=== PATIENT | female | born 1950 | race Caucasian/White ===

== ENCOUNTER 2016-12-02 23:20 | Emergency (ER) | payer BC, OTHER ==
[~2016-12-02] VITALS: Ht 160 cm; Wt 81.7 kg
[~2016-12-02 23:20] MED LIST: ADVAIR 250-501 EACH IH; ATIVAN0.5 MG PO; BENICAR40 MG PO; BUMEX2 MG PO; CLARITIN10 MG PO; DUONEB 2.5-0.5 M3 ML IH; FOSAMAX5 MG PO; K-DUR10 ME1 PO; MIRTAZAPINE7.5 MG PO; MOBIC15 MG PO; PREDNISONE 10 M10 M1 PO; PREVACID 30MG C30 M1 PO; PREVACID30 M1 PO; PROZAC 10 MG CA10 M1 PO; SIMVASTATIN40 MG PO; SINGULAIR 10 MG10 M1 PO; SPIRIVA INH; SYNTHROID50 MCG PO; VENTOLIN HFA INH8 GM IH; ZYRTEC 10 MG TA10 MG PO; ZYRTEC1 MG/1 ML PO; ZYVOX600 MG PO
[2016-12-02] MEDS ORDERED: SYMBICORT160 MCG/4. INH (23:35)
[2016-12-02] MEDS ORDERED: LEVALBUTER1.25 MG/0. INH (23:35)
[2016-12-02] MEDS ORDERED: ASPIR 8181 MG PO (23:36)
[2016-12-02] MEDS ORDERED: CARDIZEM CD120 MG PO (23:37)
[2016-12-02] MEDS ORDERED: LANOXIN 0.120.125 M1 PO (23:37)
[2016-12-02] MEDS ORDERED: TOPROL XL25 MG PO (23:38)
[2016-12-02] MEDS ORDERED: BUSPIRONE HCL10 MG PO (23:38)
[2016-12-02] MEDS ORDERED: LASIX 20 MG TAB20 MG PO (23:38)
[2016-12-03 01:14] VITALS: BP 150/88
== END 2016-12-03 01:15 | disposition home or self-care (01) ==
LOC: ER 23:20
DX: S61.411A Laceration without foreign body of right hand, initial encounter (principal); J44.9 Chronic obstructive pulmonary disease, unspecified; F41.9 Anxiety disorder, unspecified; F32.9 Major depressive disorder, single episode, unspecified; M19.012 Primary osteoarthritis, left shoulder; M19.011 Primary osteoarthritis, right shoulder; Z87.01 Personal history of pneumonia (recurrent); K21.9 Gastro-esophageal reflux disease without esophagitis; E03.9 Hypothyroidism, unspecified; E78.5 Hyperlipidemia, unspecified; Z98.890 Other specified postprocedural states; Z88.0 Allergy status to penicillin; Z88.1 Allergy status to other antibiotic agents; Z88.5 Allergy status to narcotic agent; Z91.041 Radiographic dye allergy status; Z91.013 Allergy to seafood; Z88.8 Allergy status to other drugs, medicaments and biological substances; Z87.891 Personal history of nicotine dependence; W22.8XXA Striking against or struck by other objects, initial encounter; Y93.89 Activity, other specified; Y92.091 Bathroom in other non-institutional residence as the place of occurrence of the external cause; Y99.8 Other external cause status

== ENCOUNTER 2016-12-04 20:19 | Emergency (ER) | payer BC, OTHER ==
[~2016-12-04] VITALS: Ht 160 cm; Wt 81.7 kg
[~2016-12-04 20:19] MED LIST changes: +ASPIR 8181 MG PO; +BUSPIRONE HCL10 MG PO; +CARDIZEM CD120 MG PO; +LANOXIN 0.120.125 M1 PO; +LASIX 20 MG TAB20 MG PO; +LEVALBUTER1.25 MG/0. INH; +SYMBICORT160 MCG/4. INH; +TOPROL XL25 MG PO
[2016-12-04 21:12] VITALS: BP 137/80
== END 2016-12-04 21:13 | disposition home or self-care (01) ==
LOC: ER 20:19
DX: S61.411D Laceration without foreign body of right hand, subsequent encounter (principal); J44.9 Chronic obstructive pulmonary disease, unspecified; K21.9 Gastro-esophageal reflux disease without esophagitis; E03.9 Hypothyroidism, unspecified; E78.00 Pure hypercholesterolemia, unspecified; M19.90 Unspecified osteoarthritis, unspecified site; F41.9 Anxiety disorder, unspecified; Z90.710 Acquired absence of both cervix and uterus; Z98.890 Other specified postprocedural states; Z87.891 Personal history of nicotine dependence; Z88.0 Allergy status to penicillin; Z88.1 Allergy status to other antibiotic agents; Z88.5 Allergy status to narcotic agent; Z91.013 Allergy to seafood; Z91.041 Radiographic dye allergy status; Z91.048 Other nonmedicinal substance allergy status; Z88.8 Allergy status to other drugs, medicaments and biological substances; X58.XXXD Exposure to other specified factors, subsequent encounter; Y92.89 Other specified places as the place of occurrence of the external cause; Y99.8 Other external cause status

== ENCOUNTER 2018-05-13 10:24 | Emergency (ER) | payer BC, OTHER ==
[~2018-05-13] VITALS: Ht 160 cm; Wt 89.8 kg
[2018-05-13] MEDS ORDERED: OMEGA-31000 M1 PO (10:55)
[2018-05-13] MEDS ORDERED: VITAMIN B-12500 MCG PO (10:56)
[2018-05-13] MEDS ORDERED: VITAMIN D2000 UNIT PO (10:56)
[2018-05-13] MEDS ORDERED: KLOR-CON 1010 MEQ PO (10:57)
[2018-05-13] MEDS ORDERED: LANSOPRAZOLE30 MG PO (10:57)
[2018-05-13] MEDS ORDERED: LIPITOR 20 MG T20 M1 PO (10:59)
[2018-05-13] MEDS ORDERED: DITROPAN XL5 M1 PO (10:59)
[2018-05-13] MEDS ORDERED: DESVENLAFAXINE50 M2 PO (11:00)
[2018-05-13 11:31] LABS: ABSOLUTE NEUTROPHILS 7.4 thou/uL (1.4-8.2); BASOPHILS 0.3 % (0.0-2.0); EOSINOPHILS 0.7 % (0.0-3.0); HEMATOCRIT 36.3 % (37.0-47.0); HEMOGLOBIN 12.2 gm/dL (12.0-15.0); LYMPHOCYTES 12.8 % (24.0-44.0); MCH 29.4 pg (26.0-34.0); MCHC 33.5 g/dL (28.0-37.0); MCV 87.6 fL (80.0-100.0); PLATELET COUNT 154 thou/uL (150-400); POLYS 80.2 % (36.0-66.0); RBC 4.14 mil/uL (4.20-5.00); RDW 13.7 % (10.5-14.5); WBC 9.2 thou/uL (4.0-11.0)
[2018-05-13 11:32] LABS: ANION GAP 3 mmol/L (7-16); BUN 13 mg/dL (7-18); CALCIUM 10.1 mg/dL (8.5-10.1); CHLORIDE 96 mmol/L (98-107); CO2 40 mmol/L (21-32); CREATININE 0.5 mg/dL (0.6-1.0); GLUCOSE 132 mg/dL (74-106); POTASSIUM 3.9 mmol/L (3.5-5.1); SODIUM 139 mmol/L (136-145)
[2018-05-13 11:40] LABS: ALBUMIN 3.9 g/dL (3.4-5.0); DIRECT BILIRUBIN < 0.1 mg/dL (<0.1-0.3); LIPASE 81 U/L (73-393); SGOT 19 U/L (15-37); SGPT 17 U/L (30-65); TOTAL BILIRUBIN 0.6 mg/dL (<0.1-1.0); TOTAL PROTEIN 7.1 g/dL (6.4-8.2); TROPONIN-I <0.06 ng/mL (<0.06)
[2018-05-13 12:15] LABS: URINE BILIRUBIN NEGATIVE (Negative); URINE BLOOD TRACE (Negative); URINE CLARITY CLEAR; URINE COLOR YELLOW; URINE GLUCOSE-RANDOM* NEGATIVE (Negative); URINE KETONES 1+ (Negative); URINE LEUKOCYTES-REFLEX NEGATIVE (Negative); URINE NITRITE-REFLEX NEGATIVE (Negative); URINE PROTEIN (DIPSTICK) 1+ (Negative); URINE SPECIFIC GRAVITY 1.015 (1.005-1.035); URINE UROBILINOGEN 0.2 E.U./dl (0.2-1.0)
[2018-05-13 12:27] LABS: CASTS None Seen /LPF (None Seen); MUCUS 0-3 Light strn/LPF (None Seen); SQUAMOUS 0-3 Few /LPF (0-3); URINE RBC 0-2 Rare /HPF (0-2); URINE WBC-REFLEX 0-5 Rare /HPF (0-5)
[2018-05-13 12:28] LABS: AMORPHOUS PHOSPHATES Few /LPF (None Seen); BACTERIA-REFLEX 1-9 Few /HPF (None Seen)
[2018-05-13 17:44] VITALS: BP 157/76
--- NOTE | 2018-05-13 20:17 | EKG ---
[address] [place] [address] ELECTROCARDIOGRAM REPORT Name: JL RICE Room #: DEP [place]#: [id number] ������������������ Admission: 05/13/18 ������������������ Attend Phys: Discharge: 05/13/18 ������������������ Date of : 48 Report #: [id number] ����������������������������������������������������������������� [id number] THIS REPORT FOR: //name// [facility] ED Test Date: 2018-05-13 Test Time: 11:29:10 Pat Name: JL RICE Department: Room: Gender: F Roving Can Tender: : 1950 Requested By: Eliana Douglas Order Number: [id number] MD: Gene Willard Measurements Intervals [place] Rate: 82 P: 85 OR: 140 QRS: 86 QRSD: 106 T: 73 QT: 371 QTc: 434 Interpretive Statements Sinus rhythm Atrial premature complex Nonspecific S/T abnrm Compared to ECG 10/28/2009 12:10:26 Atrial premature complex(es) now present Sinus tachycardia no longer present Electronically Signed On 05-13-2018 20:17:06 DISCHARGE PLANNER by Gene Willard [email or web address] ��������������������������������������������� <ELECTRONICALLY SIGNED> ���������������������������������������� By: Gene Willard MD ��������������������������������������������� 05/13/182016 1129 28 Gene Willard MD /EPI
== END 2018-05-13 17:44 | disposition home or self-care (01) ==
LOC: ER 10:24
PROVIDERS: Emergency Medicine
DX: R11.0 Nausea (principal); R53.1 Weakness; R51 Headache; J44.9 Chronic obstructive pulmonary disease, unspecified; M19.019 Primary osteoarthritis, unspecified shoulder; M81.0 Age-related osteoporosis without current pathological fracture; K21.9 Gastro-esophageal reflux disease without esophagitis; E03.9 Hypothyroidism, unspecified; E78.5 Hyperlipidemia, unspecified; Z87.01 Personal history of pneumonia (recurrent); Z79.899 Other long term (current) drug therapy; Z88.0 Allergy status to penicillin; Z88.1 Allergy status to other antibiotic agents; Z88.5 Allergy status to narcotic agent; Z88.8 Allergy status to other drugs, medicaments and biological substances; Z91.041 Radiographic dye allergy status; Z91.013 Allergy to seafood

== ENCOUNTER 2018-06-24 22:46 | Inpatient (IN) | payer OTHER ==
[~2018-06-24] VITALS: Ht 162.6 cm; Wt 91.5 kg
[~2018-06-24 22:46] MED LIST changes: +DESVENLAFAXINE50 M2 PO; +DITROPAN XL5 M1 PO; +KLOR-CON 1010 MEQ PO; +LANSOPRAZOLE30 MG PO; +LIPITOR 20 MG T20 M1 PO; +OMEGA-31000 M1 PO; +VITAMIN B-12500 MCG PO; +VITAMIN D2000 UNIT PO
[2018-06-24 22:53] VITALS: BP 232/97
[2018-06-24 23:36] LABS: ABSOLUTE NEUTROPHILS 8.6 thou/uL (1.4-8.2); BASOPHILS 0.2 % (0.0-2.0); HEMATOCRIT 37.8 % (37.0-47.0); HEMOGLOBIN 12.4 gm/dL (12.0-15.0); LYMPHOCYTES 3.9 % (24.0-44.0); MCH 29.8 pg (26.0-34.0); MCHC 32.9 g/dL (28.0-37.0); MCV 90.8 fL (80.0-100.0); MONOCYTES 3.1 % (1.0-8.0); PLATELET COUNT 207 thou/uL (150-400); POLYS 92.8 % (36.0-66.0); RBC 4.16 mil/uL (4.20-5.00); RDW 16.5 % (10.5-14.5); WBC 9.3 thou/uL (4.0-11.0)
[2018-06-24 23:38] LABS: CALCIUM 9.5 mg/dL (8.5-10.1); CREATININE 0.6 mg/dL (0.6-1.0); POTASSIUM 4.7 mmol/L (3.5-5.1)
[2018-06-24] MEDS ORDERED: VENTOLIN HFA 1818 GM INH (23:50)
[2018-06-24] MEDS ORDERED: UNICOMPLEX M TA1 TA1 PO (23:51)
[2018-06-24] MEDS ORDERED: SYMBICORT160 MCG/4. INH (23:52)
[2018-06-24] MEDS ORDERED: ATIVAN1 MG PO (23:56)
[2018-06-25] VITALS (28 sets, daily range): BP systolic 129–198; BP diastolic 73–130
--- NOTE | 2018-06-25 00:15 | EKG ---
[address] [address] [facility] [place] [address] ELECTROCARDIOGRAM REPORT Name: JL RICE Room #: PRE M.R.#: [id number] ������������������ Admission: ������������������ Attend Phys: Discharge: ������������������ Date of : 48 Report #: [id number] ����������������������������������������������������������������� [id number] THIS REPORT FOR: //name// [facility] ED Test Date: 2018-06-24 Test Time: 23:39:30 Pat Name: JL RICE Department: Room: Gender: F Critical Care Paramedic: danny : 1950 Requested By: Eliana Douglas Order Number: [id number] MD: Gene Willard Measurements Intervals [place] Rate: 117 P: 82 MO: 147 QRS: 157 QRSD: 97 T: 33 QT: 324 QTc: 452 Interpretive Statements Sinus tachycardia poor R-wave progression nonspecific st/t wave changes Baseline wander Compared to ECG 05/13/2018 11:29:10 no significant changes Electronically Signed On 06-25-2018 0:15:14 CDT by Gene Willard [email or web address] ��������������������������������������������� <ELECTRONICALLY SIGNED> ���������������������������������������� By: Gene Willard MD ��������������������������������������������� 06/25/18 0015 2339 [id number] Gene Willard MD /SWATHI
[2018-06-25 03:32] LABS: BE(vivo) 9.6 mmol/L (-2 to +3); HCO3 39.5 mmol/L (22.0-26.0); PO2 166.5 mmHg (80.0-100.0); sO2 98.8 % (92.0-98.0)
[2018-06-25 03:34] LABS: PCO2 83.4 mmHg (35.0-45.0)
[2018-06-25 03:35] LABS: pH 7.293 (7.360-7.450)
--- NOTE | 2018-06-25 05:00 | NUR ---
PT ADMITED FROM ER AROUND 0200. AT BEDSIDE. PT C/O HEADACHE AND SOA. DENIES CP. 6 L NC. BP AND HR ELEVATED, REFINERY OPER[facility] [facility] NOTIFIED, ORDERS GIVEN. LASIX AND HYDROLYZINE PER EMAR. RT NOTIFIED- BREATHING TREATMENT PER ORDERS. ABG RESULTS RELAYED TO [facility], PT PLACED ON BIPAP- TRANSFER TO [facility] AROUND 0400.
[2018-06-25 05:08] LABS: HCO3 40.1 mmol/L (22.0-26.0); PO2 87.7 mmHg (80.0-100.0); sO2 95.1 % (92.0-98.0)
[2018-06-25 05:11] LABS: PCO2 85.6 mmHg (35.0-45.0); pH 7.288 (7.360-7.450)
--- NOTE | 2018-06-25 06:25 | NUR ---
0415 RECIEVED PATIENT TO ROOM 357 PER BED PER TRANSFER FROM . PATIENT ANXIOUS, ON BIPAP, STATING IS VERY SHORTNESS OF BREATH. ADMISSION PROCESS CONTINUED. AT BEDSIDE. RT AT BEDSIDE. TELEMETRY SHOWS ST 117. FORGETFUL BUT DOES ANSWER QUESTIONS. 0511 CRITICAL LAB FOR ABG CALLED. NOTIFIED Parvin DE LUNA AND CONSULT CALLED TO DR. BENITEZ. ORDERS TO TRANSFER TO ICU. NOTIFIED LITHOGRAPHIC PRESS OPERATOR. 7943 REPORT CALLED TO NAOMI LAMB IN ICU. 0600 TRANSPORTED TO ICU PER BED ON BIPAP WITH RT AT SIDE. TOOK ELECTRIC WHEELCHAIR TO BEREA.
[2018-06-25 06:28] LABS: CALCIUM 9.1 mg/dL (8.5-10.1); CREATININE 0.7 mg/dL (0.6-1.0); POTASSIUM 4.2 mmol/L (3.5-5.1)
--- NOTE | 2018-06-25 06:29 | NUR ---
PT TRANSFERED TO ICU 246 FROM [facility]; Pt arrived at 0600, on Bipap 16/6, 45% FiO2, back up rate 14. Pt feels anxious, SOA, but is alert, oriented x4 and cooperative. Monitor sinus tach with frequent PAC's and PVC'sl, rate 100-110. O2 sat 97% on current bipap settings. Santana catheter placed without difficulty, urine output adequate. Breath sounds are very diminished.
[2018-06-25 14:05] LABS: BE(vivo) 7.8 mmol/L (-2 to +3); HCO3 36.3 mmol/L (22.0-26.0); PO2 113.7 mmHg (80.0-100.0); pH 7.321 (7.360-7.450); sO2 97.7 % (92.0-98.0)
--- NOTE | 2018-06-25 19:09 | NUR ---
Assumed care or patient at 0700. Patient on continous bipap for majority of the day. Short break given in early afternoon off bipap. Patient maintained sats with 6L NC but fatigued quickly. High anxiety with bipap, requesting frequent breaks. Able to eat small yogurt and drink some water. Otherwise denies pain. Continue to monitor.
[2018-06-26] VITALS (69 sets, daily range): BP systolic 57–182; BP diastolic 19–114
[2018-06-26 06:31] LABS: BE(vivo) 12.2 mmol/L (-2 to +3); HCO3 46.3 mmol/L (22.0-26.0); PO2 67.3 mmHg (80.0-100.0); pH 7.162 (7.360-7.450); sO2 85.4 % (92.0-98.0)
[2018-06-26 06:32] LABS: PCO2 132.2 mmHg (35.0-45.0)
--- NOTE | 2018-06-26 07:39 | NUR ---
END OF SHIFT SUMMARY: Pt began shift very restless, anxious, pulling off bipap mask and monitor wires. Monitor ST with frequent PVC's, with rates 110-120, and SBP > 150, respirations in mid 30's, O2 sat in mid 90's. Ativan given with minimal effect at 1900. Nurse practioner notified and Ativan given again at 2200. Pt able to rest at that time, monitor sinus rhythm- sinus tach with frequent PAC's rate 80's to 106, SBP in 140's, respirations down to mid 20's. Lungs remained extremely diminished and breathing labored even with bipap. As night progressed pt became more difficult to awaken. At 0530 unable to awaken pt. ABG obtained and critical results called to Dr. James; orders received. Urine output marginal at 200 cc per 12 hours. Skin integrity intact.
[2018-06-26 08:13] LABS: BE(vivo) 22.3 mmol/L (-2 to +3); HCO3 56.8 mmol/L (22.0-26.0); PCO2 143.4 mmHg (35.0-45.0); PO2 136.5 mmHg (80.0-100.0); pH 7.216 (7.360-7.450); sO2 97.8 % (92.0-98.0)
[2018-06-26 08:35] LABS: ABSOLUTE NEUTROPHILS 11.7 thou/uL (1.4-8.2); BASOPHILS 0.1 % (0.0-2.0); HEMATOCRIT 37.4 % (37.0-47.0); HEMOGLOBIN 12.3 gm/dL (12.0-15.0); LYMPHOCYTES 3.4 % (24.0-44.0); MCHC 32.9 g/dL (28.0-37.0); MCV 91.3 fL (80.0-100.0); PLATELET COUNT 185 thou/uL (150-400); POLYS 92.5 % (36.0-66.0); RDW 16.2 % (10.5-14.5); WBC 12.7 thou/uL (4.0-11.0)
[2018-06-26 08:46] LABS: ALBUMIN 3.6 g/dL (3.4-5.0); BUN 36 mg/dL (7-18); CALCIUM 9.9 mg/dL (8.5-10.1); CHLORIDE 95 mmol/L (98-107); CREATININE 0.8 mg/dL (0.6-1.0); GLUCOSE 158 mg/dL (74-106); POTASSIUM 4.9 mmol/L (3.5-5.1); SGOT 17 U/L (15-37); SGPT 23 U/L (30-65); SODIUM 142 mmol/L (136-145); TOTAL BILIRUBIN 0.4 mg/dL (<0.1-1.0); TOTAL PROTEIN 6.6 g/dL (6.4-8.2)
[2018-06-26 08:49] LABS: CO2 > 45 mmol/L (21-32)
[2018-06-26 09:18] LABS: BE(vivo) 9.1 mmol/L (-2 to +3); HCO3 41.1 mmol/L (22.0-26.0); PO2 114.3 mmHg (80.0-100.0); sO2 96.9 % (92.0-98.0)
[2018-06-26 09:20] LABS: PCO2 104.3 mmHg (35.0-45.0); pH 7.213 (7.360-7.450)
--- NOTE | 2018-06-26 09:34 | NUR ---
patient admits to ICU with copd exacerbation. 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 Lived in area prior to [place] so familiar with area. They saw Dr Song prev and upon return resumed seeing Dr Song for pulmonary and Dr Ward PCP. 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 She uses oxygen via [employer] 5 liters at rest and at times up to 10 liters with exertion. Patient had a [place]ipap in [place] but rec under company in [place] and could not bring to area. Spouse reports patient with difficulty breathing and was seeing Dr Song recently trying different approaches with medications and nebulizer for improvement. Spouse reports more SOA and brought to hospital. 2 children in [facility] who are supportive. Spouse reports new insurance as well for patient a replacement policy. Casemgt following for dc planning.
[2018-06-26 12:57] LABS: BE(vivo) 18.3 mmol/L (-2 to +3); HCO3 51.8 mmol/L (22.0-26.0); PO2 102.2 mmHg (80.0-100.0); sO2 95.9 % (92.0-98.0)
[2018-06-26 12:58] LABS: PCO2 124.7 mmHg (35.0-45.0); pH 7.236 (7.360-7.450)
--- NOTE | 2018-06-26 20:13 | NUR ---
VASCULAR ACCESS TEAM CONSULTED FOR PICC LINE,LABS,MEDS,HISTORY, ORDER AND CONSENT VERIFIED. PT WAS DRAPED MAX BARRIER. UNSUCCESSFUL ATTEMPT ON BOTH ARMS FOR PICC, UNABLE TO THREAD WIRE. DR BENITEZ HERE AND HE ATTEMPTED LEFT SC AGAIN UNABLE TO PASS GUIDEWIRE. NEW KIT OBTAINED AND TL LIJ INSERTED BY DR BENITEZ.
--- NOTE | 2018-06-26 20:41 | NUR ---
PT VERY DROWSY/LETHARGIC THIS AM. WOULD OPEN EYES TO STERNAL RUB. REMAINS ON BIPAP. ABG'S DONE X3 THIS AM AND CRITICAL RESULTS GIVEN TO DR BENITEZ. ADJUSTMENTS MADE TO BIPAP. DR BENITEZ HERE AND SPOKE TO MULITIPLE TIMES TODAY. INTUBATED BY DR BENITEZ AT 1550. GIVEN MEDS DOCUMENTED PER MAR PRIOR TO INTUBATION. PROPOFOL GTT AND AND LEVOPHED GTT GIVEN. BRONCH DONE AT BEDSIDE. IV TEAM ATTEMPTED TO PLACE PICC MULTIPLE SITES WITH NO SUCESS. DR BENITEZ NOTIFIED AND HERE TO PLACE CENTRAL LINE. ALIREZA PLACED AT 1650. BLEEDING AROUND SITE. DRESSINGS CHANGED MULITIPLE TIMES. DR BENITEZ AT BEDSIDE AND AWARE. AT 1735 ALIREZA NOTED TO HAVE HEMATOMA AND TO HAVE SLIPPED PARTIALLY OUT OF SUTURE. PRESSURE APPLIED AND MALPLACED ALIREZA DISCONTINUED. THIS EVENING DIFFICULTLY OBTAINING BP. ATTEMPTED MULITIPLE SITES WITH AUTOMATIC AND MANUAL CUFF. LEVOPHED AND PROPOFOL INFUSING. PT ALSO NOTED TO HAVE RAPID MOVEMENT OF EYE LIDS AND TREMORS. DR BENITEZ UPDATED. PT'S AT BEDSIDE AND UPDATED THIS EVENING. DR BENITEZ AT BEDSIDE AND ATTEMPTING TO PLACE A-LINE. REPORT GIVEN TO FLOCCULATOR OPERATOR RN.
[2018-06-27] VITALS (58 sets, daily range): BP systolic 86–148; BP diastolic 37–82
[2018-06-27 00:11] LABS: BE(vivo) 14.1 mmol/L (-2 to +3); HCO3 42.2 mmol/L (22.0-26.0); PCO2 VENOUS 71.3 mmHg (41.0-51.0)
[2018-06-27 05:26] LABS: HEMATOCRIT 33.5 % (37.0-47.0); HEMOGLOBIN 11.1 gm/dL (12.0-15.0); MCH 30.1 pg (26.0-34.0); MCHC 33.1 g/dL (28.0-37.0); MCV 90.9 fL (80.0-100.0); RBC 3.69 mil/uL (4.20-5.00); RDW 16.5 % (10.5-14.5); WBC 12.5 thou/uL (4.0-11.0)
[2018-06-27 05:35] LABS: CALCIUM 8.8 mg/dL (8.5-10.1)
--- NOTE | 2018-06-27 05:50 | NUR ---
ASSUMED CARE @ 1900 06/26/18, PT ASSESSMENTS AND VSS COMPLETE PER ICU PROTOCOL. PT ON THE VENT, EQUAL CHEST RISE, SATS IN THE HIGH 90'S. VERSED GTT FOR SEDATION, PT NOT FOLLOWING COMMANDS, BUT WILL OPEN EYES TO PAINFUL STIMULI, INTERMITTENT TREMORS APPARENT. PT ST WITH PAC'S ON THE MONITOR, LEVO AND AMIO GTT IN PLACE, CVP MONITORING IN PLACE, PT WENT INTO THE 140- 150'S SUSTAINED, DR ELI SANCHEZ, METOPROLOL 5MG ORDERED, HR DOWN TO THE LOW 100'S TO 110'S. OG IN PLACE TO LIS, ACCUCHECK Q6H, LOW SLIDING SCALE INSULIN IN PLACE. ARROYO IN PLACE. RESTRAINTS IN PLACE. FALL PRECAUTIONS IN PLACE. FAMILY AT BEDSIDE PART OF THE SHIFT. PLAN OF CARE- CONT TO MONITOR.
[2018-06-27 08:37] LABS: BE(vivo) 13.7 mmol/L (-2 to +3); HCO3 40.4 mmol/L (22.0-26.0); PCO2 59.9 mmHg (35.0-45.0); pH 7.447 (7.360-7.450)
--- NOTE | 2018-06-27 12:10 | 2DMMODE ---
[facility] [address] [place] [address] 2 D/M-MODE ECHOCARDIOGRAM Name: JL RICE Room #: 246-P ADM IN M.R.#: [id number] ������������� Admission: 06/25/18 ������������� Attend Phys: Ayaz Dunham Discharge: ��� ������������� ��� Date of : 48 Date of Service: 06/27/18 1210 �� Report #: [id number] �������� ��������������������������������������������[id number] THIS REPORT FOR: //name// APPROVED REPORT Study performed: 06/27/2018 11:08:29 EXAM: Comprehensive 2D, Doppler, and color-flow Echocardiogram Patient Location: ICU Room #: [facility] Status: routine BSA: 1.92 HR: 104 bpm BP: 141/81 mmHg Rhythm: Tachycardia Other Information Study Quality: Adequate Indications COPD Dyspnea 2D Dimensions IVSd: 10.85 (7-11mm) LVOT Diam: 17.90 (18-24mm) LVDd: 43.17 mm PWd: 10.49 (7-11mm) Ascending Ao: 27.27 (22-36mm) LVDs: 29.18 (25-40mm) Aortic Root: 29.07 mm IVC: 12.00 mm Aortic Valve AoV Peak Alex.: 1.39 m/s AO Peak Gr.: 7.72 mmHg LVOT Max P.72 mmHg LVOT Max V: 0.96 m/s ISMAEL Vmax: 1.75 cm2 Mitral Valve E/A Ratio: 0.8 MV Decel. Time: 247.79 ms MV E Max Alex.: 0.49 m/s MV A Alex.: 0.62 m/s MV PHT: 71.86 ms IVRT: 138.41 ms Pulmonary Valve [facility] [address] [address] 2 D/M-MODE ECHOCARDIOGRAM Name: JL RICE Room #: 246-P ADM IN M.R.#: [id number] ������������� Admission: 06/25/18 ������������� Attend Phys: Ayaz Dunham Discharge: ��� ������������� ��� Date of : 48 Date of Service: 06/27/18 1210 �� Report #: [id number] �������� ��������������������������������������������[id number] PV Peak Alex.: 1.26 m/s PV Peak Gr.: 6.32 mmHg Tricuspid Valve TR Peak Alex.: 3.72 m/s TR Peak Gr.: 55.47 mmHg PA Pressure: 65.00 mmHg Left Ventricle The left ventricle is normal size. There is normal LV segmental wall motion. There is normal left ventricular wall thickness. The left ventricular systolic function is normal. The left ventricular ejection fraction is within the normal range. LVEF is 60-65%. Mild diastolic dysfunction Right Ventricle The right ventricle is normal size. The right ventricular systolic function is normal. Atria The left atrium size is normal. The right atrium size is normal. Aortic Valve The aortic valve is normal in structure. No aortic regurgitation is present. There is no aortic valvular stenosis. Mitral Valve The mitral valve is normal in structure. There is no mitral valve regurgitation noted. No evidence of mitral valve stenosis. Tricuspid Valve The tricuspid valve is normal in structure. There is mild to moderate tricuspid regurgitation. Estimated PAP 65 mmHg. There is moderate pulmonary hypertension. Pulmonic Valve The pulmonary valve is normal in structure. There is no pulmonic valvular regurgitation. Great Vessels The aortic root is normal in size. IVC is normal in size and collapses <50% with inspiration. Pericardium There is no pericardial effusion. [facility] [address] [place] [address] 2 D/M-MODE ECHOCARDIOGRAM Name: JL RICE Room #: 246-P ADM IN M.R.#: [id number] ������������� Admission: 06/25/18 ������������� Attend Phys: Ayaz Dunham Discharge: ��� ������������� ��� Date of : 48 Date of Service: 06/27/18 1210 �� Report #: [id number] �������� ��������������������������������������������[id number] <Conclusion> The left ventricular systolic function is normal. There is normal LV segmental wall motion. LVEF 60-65%. Mild diastolic dysfunction The aortic valve is normal in structure. No aortic regurgitation or stenosis. The mitral valve is normal in structure. No mitral valve regurgitation. There is mild to moderate tricuspid regurgitation. Estimated pulmonary artery pressure of 65 mmHg. There is no pericardial effusion. ��������������������������������������������� <ELECTRONICALLY SIGNED> ���������������������������������������� By: Bryant Lynn MD, FACC ��������������������������������������������� 06/27/181209 09 1210 Bryant Lynn MD, FACC /INF
--- NOTE | 2018-06-27 19:29 | NUR ---
ASSESSMENTS DOCUMENTED. PT REMAINS INTUBATED/SEDATED ON VENT. CALLED ANETHESIA TO PLACE A-LINE PER DR. BENITEZ REQUEST. UNABLE TO PLACE TODAY. SEDATED ON VERSED. LEVO TO MAINTAIN BLOOD PRESSURES. DISCONTINUED AMIO GTT THIS AM PER CARDIOLOGY. STARTED ON PO DILTIAZEM. PT HAVING EPISODES OF ELEVATED HEART RATES 130-170'S. SPOKE WITH CARDIOLOGY NUMBEROUS TIMES D/T HEART RATE AND HYPOTENSION. PT CURRENTLY MAXED ON LEVO GTT. BOLUS OF CARDIZEM GIVEN AND STARTED ON GTT. CARDIZEM GTT MAXED AND PATIENT HEART RATE REMAINS ELEVATED. SPOKE WITH DR. [place] - PT TO HAVE AMIODARONE BOLUSES Q6HR IN ADDITION TO THE CARDIZEM GTT. PT NOW IN SINUS RHYTHM RATES IN THE 90'S. AT BEDSIDE THROUGH OUT THE DAY. UPDATED ON PLANE OF CARE. NASAL SWABS SENT FOR MRSA AND FLU. URINE SAMPLE SENT.
[2018-06-28] VITALS (80 sets, daily range): BP systolic 71–144; BP diastolic 37–86
[2018-06-28 04:54] LABS: ABSOLUTE NEUTROPHILS 12.5 thou/uL (1.4-8.2); BASOPHILS 0.2 % (0.0-2.0); EOSINOPHILS 0.2 % (0.0-3.0); HEMATOCRIT 32.7 % (37.0-47.0); HEMOGLOBIN 10.9 gm/dL (12.0-15.0); LYMPHOCYTES 3.8 % (24.0-44.0); MCH 30.2 pg (26.0-34.0); MCHC 33.2 g/dL (28.0-37.0); MCV 90.9 fL (80.0-100.0); MONOCYTES 3.6 % (1.0-8.0); PLATELET COUNT 155 thou/uL (150-400); POLYS 92.2 % (36.0-66.0); RDW 16.1 % (10.5-14.5); WBC 13.5 thou/uL (4.0-11.0)
[2018-06-28 05:07] LABS: ALBUMIN 2.4 g/dL (3.4-5.0); CALCIUM 8.9 mg/dL (8.5-10.1); CREATININE 0.9 mg/dL (0.6-1.0); POTASSIUM 3.7 mmol/L (3.5-5.1); TOTAL BILIRUBIN 0.5 mg/dL (<0.1-1.0); TOTAL PROTEIN 5.7 g/dL (6.4-8.2)
[2018-06-28 05:26] LABS: BE(vivo) 11.6 mmol/L (-2 to +3); HCO3 40.7 mmol/L (22.0-26.0); PO2 89.3 mmHg (80.0-100.0); sO2 95.7 % (92.0-98.0)
[2018-06-28 05:27] LABS: PCO2 80.7 mmHg (35.0-45.0); pH 7.321 (7.360-7.450)
--- NOTE | 2018-06-28 06:11 | NUR ---
ASSUMED PATIENT CARE AT 1900. PATIENT LYING IN THE BED ON THE VENTILATOR AND IS MODERATELY SEDATED. VERSED, CARDIZEM, AND LEVOPHED IS INFUSING. NO SIGNS OF DISTRESS IS NOTED. THROUGHOUT THIS SHIFT, PATIENT'S VS WERE STABLE AND CARDIZEM AND LEVOPHED WAS TITRATED DOWN UNTIL APPROXIMATELY 0500, PATIENT'S HR WENT UP TO THE 140-150'S. CARDIZEM WAS INCREASED IN INCREMENTS BACK UP TO THE MAXIMUM RATE. HR REMAINS AT 110-120'S. AMIODARONE BOLUSES WERE GIVEN Q6H ORDERED. PATIENT SHOWS SOME IMPROVEMENT TOWARDS GOAL.
[2018-06-28 07:09] LABS: ADENOVIRUS Negative (Negative); INFLUENZA A Negative (Negative); INFLUENZA B Negative (Negative); METAPNEUMOVIRUS Negative (Negative); PARAINFLUENZA 1 Negative (Negative); PARAINFLUENZA 2 Negative (Negative); PARAINFLUENZA 3 Positive (Negative); RHINOVIRUS Negative (Negative); RSV A Negative (Negative); RSV B Negative (Negative)
--- NOTE | 2018-06-28 08:45 | EKG ---
[address] [place] [address] ELECTROCARDIOGRAM REPORT Name: JL RICE Room #: 246-P ADM IN M.R.#: [id number] ������������������ Admission: 06/25/18 ������������������ Attend Phys: Ayaz Hernandez Discharge: ������������������ Date of : 48 Report #: [id number] ����������������������������������������������������������������� [id number] THIS REPORT FOR: //name// [facility] Test Date: 2018-06-27 Test Time: 10:09:56 Pat Name: JL RICE Department: Room: 246 P Gender: F Plant Operator: Donny TORRES : 1950 Requested By: Bryant Lynn Order Number: [id number] MD: Bryant Lynn Measurements Intervals [place] Rate: 126 P: 83 NC: 128 QRS: 101 QRSD: 114 T: -66 QT: 318 QTc: 461 Interpretive Statements Sinus tachycardia Incomplete right bundle branch block Abnormal R-wave progression, late transition Nonspecific ST and T wave abnormality Compared to ECG 06/24/2018 23:39:30 Incomplete right bundle-branch block now present Electronically Signed On 06-28-2018 8:45:43 CDT by Bryant Lynn [email or web address] ��������������������������������������������� <ELECTRONICALLY SIGNED> ���������������������������������������� By: Bryant Lynn MD, [facility] ��������������������������������������������� 06/28/18 0845 1009 1009 Bryant Lynn MD, [facility] /EPI
--- NOTE | 2018-06-28 08:59 | EKG ---
[address] [address] [facility] [place] [address] ELECTROCARDIOGRAM REPORT Name: JL RICE Room #: 246-P ADM IN M.R.#: [id number] ������������������ Admission: 06/25/18 ������������������ Attend Phys: Ayaz Hernandez Discharge: ������������������ Date of : 48 Report #: [id number] ����������������������������������������������������������������� [id number] THIS REPORT FOR: //name// [facility] Test Date: 2018-06-27 Test Time: 15:36:42 Pat Name: JL RICE Department: Room: 246 P Gender: F Esol Teacher Assistant: Nic COLVIN : 1950 Requested By: Donna Cook Order Number: [id number] MD: Bryant Lynn Measurements Intervals [place] Rate: 81 P: 77 ID: [id number] QRS: 93 QRSD: 107 T: 87 QT: 391 QTc: 454 Interpretive Statements Sinus rhythm Atrial premature complexes Left posterior fascicular block Nonspecific ST and T wave abnormality Compared to ECG 06/24/2018 23:39:30 Atrial premature complex(es) now present Electronically Signed On 06-28-2018 8:58:55 CDT by Bryant Lynn [email or web address] ��������������������������������������������� <ELECTRONICALLY SIGNED> ���������������������������������������� By: Bryant Lynn MD, [facility] ��������������������������������������������� 06/28/18 0858 1536 1536 Bryant Lynn MD, [facility] /EPI
--- NOTE | 2018-06-28 09:05 | EKG ---
[place] [address] [facility] [place] [address] ELECTROCARDIOGRAM REPORT Name: JL RICE Room #: 246-P ADM IN M.R.#: [id number] ������������������ Admission: 06/25/18 ������������������ Attend Phys: Ayaz Hernandez Discharge: ������������������ Date of : [birth year] Report #: [id number] ����������������������������������������������������������������� [id number] THIS REPORT FOR: //name// [facility] Test Date: 2018-06-28 Test Time: 07:11:06 Pat Name: JL RICE Department: Room: 246 P Gender: F [employer] Tube Bender: MONICA : 1950 Requested By: Bryant Lynn Order Number: [id number] MD: Bryant Lynn Measurements Intervals [place] Rate: 104 P: MT: QRS: 94 QRSD: 97 T: -74 QT: 359 QTc: 473 Interpretive Statements Atrial fibrillation Right axis deviation Nonspecific ST and T wave abnormality Compared to ECG 06/24/2018 23:39:30 atrial fibrillation has replaced sinus rhythm Electronically Signed On 06-28-2018 9:05:30 CDT by Bryant Lynn [email or web address] ��������������������������������������������� <ELECTRONICALLY SIGNED> ���������������������������������������� By: Bryant Lynn MD, [facility] ��������������������������������������������� 06/28/18904 0 0 Bryant Lynn MD, FACC /EPI
--- NOTE | 2018-06-28 10:14 | HC ---
[facility] [place] [address] CONSULTATION Name: JL RICE Room #: 246-P ADM IN M.R.#: [id number] Admission: 06/25/18 ������������������ Attend Phys: Ayaz Hernandez Discharge: ������������������ Date of : [birth year] Report #: [id number] THIS REPORT FOR: //name// CC: Ayaz Pettit DATE OF SERVICE: 06/27/2018 INFECTIOUS DISEASES CONSULTATION REASON FOR CONSULTATION: I was asked to evaluate concerning respiratory failure and lower respiratory tract infection. 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 She has baseline inhalers as well as prednisone 5 mg a day and 5 liters of oxygen at rest. She had been living in [place] until the first week of May, when she moved back to [place] with her . Since then, she has had some increased respiratory issues and has been seen in the outpatient clinic by Dr. Song from Pulmonary Medicine, who adjusted her inhalers. Three days ago, she developed a rather acute onset of shortness of breath with nonproductive cough. No pleuritic chest pain. No hemoptysis. The shortness of breath persisted and she presented to the Emergency Room for further care. She has been on Lasix. She stopped this due to her inability to get up and get to the bathroom. Denies any increased swelling. She has had no ongoing chest pains or palpitations. Admitted through the Emergency Room and developed further hypoxia and hypercapnia. Required intubation and mechanical ventilation yesterday and was placed on Levophed for hypotension. She underwent a bronchoscopy and BAL. Studies from this are currently pending. The patient was sedated and unable to give any further details. History was further obtained from the patient's at the bedside and nursing staff at the bedside, along with review of her medical records. REVIEW OF SYSTEMS: She has had no GI or issues. No skin lesions, although she does bruise easily. No adenopathy issues. A 10-point review is otherwise negative, other than what has been described. ALLERGIES: MULTIPLE INCLUDING PENICILLIN, CEPHALOSPORINS, SULFA, TELITHROMYCIN, TYLENOL, BUPROPION, GATIFLOXACIN, GUAIFENESIN, HYDROCODONE, IODINE, LEVOFLOXACIN, METHYLPREDNISOLONE, MORPHINE, MUPIROCIN, NAPROSYN, PAROXETINE, ACTONEL, BETADINE, SHELLFISH AND EFFEXOR. Reactions to some of these medications are not currently known. MEDICATIONS: Included doxycycline on admission and switched to vancomycin and meropenem last evening. Other medications as noted on her MAY, including [address] [address] CONSULTATION Name: JL RICE Room #: 246-P [facility] IN M.R.#: [id number] Admission: 06/25/18 ������������������ Attend Phys: Ayaz Hernandez Discharge: ������������������ Date of : 48 Report #: [id number] corticosteroids. PAST MEDICAL HISTORY: Heart disease, hypertension, COPD, hysterectomy, diverticulitis with colon resection, degenerative arthritis, anxiety, depression, adrenalectomy, tonsillectomy, appendectomy, pneumonia, sinus surgery, osteoporosis, gastroesophageal reflux, cholecystectomy, hypothyroidism and hyperlipidemia. FAMILY HISTORY: Noncontributory. SOCIAL HISTORY: Past smoker. No significant alcohol intake. PHYSICAL EXAMINATION: VITAL SIGNS: Afebrile. Blood pressure was 121/81 on low-dose Levophed drip. Heart rate was in the 120 to 130 range on FiO2 of 60%. She had a left IJ catheter in place. Art line was without swelling or erythema. SKIN: Multiple ecchymosis to her extremities. No palpable adenopathy. EYES: Without scleral icterus. MOUTH: Without mucositis. She was orally intubated. NECK: Supple, with no thyromegaly or mass appreciated. LUNGS: Decreased breath sounds bilaterally. HEART: Regular, without murmur, gallop or rub. ABDOMEN: Soft, nontender. No hepatosplenomegaly or mass appreciated. GENITOURINARY: External genitalia unremarkable, without lesion, with indwelling Santana catheter. EXTREMITIES: Without clubbing or cyanosis. She did have mild edema in the lower extremities. NEUROLOGIC: She was sedated. Unable to test neurologic function, other than she does respond to painful stimuli. She moved all her extremities. LABORATORY STUDIES: Sodium 140, potassium 4, bicarbonate 43 and creatinine 1. Liver function test normal. Hemoglobin 11.1, white count 12.5 and platelet count 167,000. TSH 0.24. Viral respiratory panel and bronchoscopy results are pending. Chest x-ray showed chronic changes of COPD, with no evidence of acute infiltrate or consolidation. IMPRESSION: 1. A 67-year-old with advanced chronic obstructive pulmonary disease and asthma, who presents now with chronic obstructive pulmonary disease exacerbation, bronchitis, and respiratory failure. So far no consolidating infiltrates. Organisms would include viral, atypical bacterial and bacterial organisms. It is still possible environmental allergies could be the trigger; this is noting that the patient has relocated within the last month from [place]. 2. MULTIPLE DRUG ALLERGIES. 3. Hypertension. 4. History of depression and anxiety. [facility] [address] [place] [address] CONSULTATION Name: JL RICE Room #: 246-P ADM IN M.R.#: [id number] Admission: 06/25/18 ������������������ Attend Phys: Ayaz Kendall David Discharge: ������������������ Date of : 48 Report #: [id number] 5. Gastroesophageal reflux. RECOMMENDATIONS: We will continue IV antibiotic therapy with Tamiflu and meropenem. Obtain viral studies, Legionella PCR, strep antigen. Continue full ICU support. Wean vasopressors off today. ��������������������������������������������� <ELECTRONICALLY SIGNED> ���������������������������������������� By: Tim Arguelles MD ��������������������������������������������� 06/28/18 1014 1130 0251 Tim Arguelles MD /nt
--- NOTE | 2018-06-28 14:05 | NUR ---
TF started today. Recommend Vital High Protein at 50 mL/hr to meet 98% kcal needs and 96% protein needs. Water needs met through TF water content plus current 300 mL of IVF.
[2018-06-28 20:58] LABS: BE(vivo) 11.4 mmol/L (-2 to +3); HCO3 40.1 mmol/L (22.0-26.0); PO2 102.4 mmHg (80.0-100.0); pH 7.335 (7.360-7.450); sO2 97.1 % (92.0-98.0)
--- NOTE | 2018-06-28 20:58 | NUR ---
SHIFT SUMMARY: VERSED TITRATED 1-4 MG/HR WITH EXCEPTION OF VERSED UP TO 8 MG/HR DURING BRONCH PERFORMED BY DR. BENITEZ WITH THE ASSISTANCE OF RESP THERAPY AND RN. AFIB RVR, PER DR. MONTANA'S ORDER, AMIODARONE AND CARDIZEM PO GIVEN THEN AMIODARONE GTT TITRATED OFF. CARDIZEM INFUSING FOR AFIB RATE CONTROL. TOLERATING VENT, MODERATE AMOUNT YELLOW SECRETIONS SUCTIONED PER ETT, ARROYO WITH ADEQUATE URINE OUTPUT. SPOUSE AND SON PRESENT TODAY. UPDATING FAMILY PT STATUS IT OCCURS. QUESTIONS ANSWERED TO SATISFACTION. DR. BENITEZ PERFORMED BRONCH FROM @ [id number]. OBTAINED THICK SECRETIONS. VERSED IV INCREASED ONLY DURING PROCEDURE, WELL TOLERATED BY PT. SPOUSE PRESENT, DR. BENITEZ UPDATING HIM DURING THE PROCEDURE.
[2018-06-29] VITALS (44 sets, daily range): BP systolic 92–137; BP diastolic 43–63
[2018-06-29 04:28] LABS: CALCIUM 8.9 mg/dL (8.5-10.1)
[2018-06-29 04:32] LABS: HEMOGLOBIN 10.6 gm/dL (12.0-15.0); MCH 30.1 pg (26.0-34.0); MCHC 33.2 g/dL (28.0-37.0); MCV 90.8 fL (80.0-100.0); RBC 3.52 mil/uL (4.20-5.00); RDW 16.7 % (10.5-14.5); WBC 19.1 thou/uL (4.0-11.0)
--- NOTE | 2018-06-29 06:23 | NUR ---
ASSUMED PATIENT CARE AT 1900. PATIENT LYING IN BED LIGHTLY SEDATED AND ON THE VENTILATOR. LEVOPHED, CARDIZEM, AND VERSED IS INFUSING. PATIENT IS IN AFIB WITH RVR WITH RATE FLUCTUATING BETWEEN 130 AND 150. PO CARDIZEM GIVEN ORDERED. PATIENT REMAINS IN AFIB WITH RVR THROUGHOUT THIS SHIFT. PATIENT IS STILL NOT FOLLOWING COMMANDS BUT WILL OPEN EYES TO VERBAL STIMULI. VITAL HP STARTED AT 50 ML/HR AND WATER BOLUSES GIVEN ORDERED Q4H. PATIENT DOES NOT SHOW ANY IMPROVEMENT TOWARDS GOAL.
--- NOTE | 2018-06-29 08:26 | EKG ---
[address] [address] ELECTROCARDIOGRAM REPORT Name: JL RICE Room #: 246-P ADM IN M.R.#: [id number] ������������������ Admission: 06/25/18 ������������������ Attend Phys: Ayaz Hernandez Discharge: ������������������ Date of : 48 Report #: [id number] ����������������������������������������������������������������� [id number] THIS REPORT FOR: //name// [facility] Test Date: 2018-06-29 Test Time: 07:25:44 Pat Name: JL RICE Department: Room: 246 P Gender: F Senior Staff Consultant: MONICA : 1950 Requested By: Bryant Lynn Order Number: [id number] MD: Ish Holguin Measurements Intervals Veyo Rate: 94 P: [place]: QRS: 99 QRSD: 101 T: QT: 382 QTc: 478 Interpretive Statements Atrial fibrillation Left posterior fascicular block Anteroseptal infarct, age indeterminate Compared to ECG 06/28/2018 07:11:06 Left posterior fascicular block now present Myocardial infarct finding now present Right-axis deviation no longer present ST (T wave) deviation no longer present Electronically Signed On 06-29-2018 8:25:53 CDT by Ish Holguin [email or web address] ��������������������������������������������� <ELECTRONICALLY SIGNED> ���������������������������������������� By: Ish Holguin MD ��������������������������������������������� 06/29/18824 4 4 Ish Holguin MD /EPI
--- NOTE | 2018-06-29 16:04 | NUR ---
FOLLOWING FOR DC PLANNING. PT REQUIRED INTUBATION 06/26/18 AND REMAINS INTUBATED 50% FIO2 PEEP 8 AND SEDATED. ON PRESSORS R/T HYPOTENSION AND AMIO GTT FOR HR CONTROL. PT'S SPOUSE VISITS DAILY AND DR. ADAMSON MET WITH HIM THIS AM AND DISCUSSED PT'S CURRENT STATUS.
--- NOTE | 2018-06-29 19:30 | NUR ---
SHIFT SUMMARY: SEDATION VACATION PERFORMED AT 1000, NO FURTHER SEDATION FOR SHIFT. PT OPENS EYES, BLINKS SPONTANEOUSLY, RESPONDS TO DEEP PAIN. AFIB 80-119, TITRATED LEVOPED DOWN FROM 12 MCG/MIN TO 3 MCG/MIN, WELL TOLERATED. TOLERATING TUBE FEEDING, MEDS/WATER BOLUSES. ADEQUATE URINE OUTPUT. UPDATED SPOUSE ON ALL CARES. PROVIDED SUPPORT. SEE ASSESSMENTS FOR DETAILS.
[2018-06-30] VITALS (64 sets, daily range): BP systolic 96–155; BP diastolic 32–81
[2018-06-30 05:26] LABS: BE(vivo) 9.2 mmol/L (-2 to +3); HCO3 39.5 mmol/L (22.0-26.0); PO2 90.1 mmHg (80.0-100.0); sO2 94.8 % (92.0-98.0)
[2018-06-30 05:27] LABS: pH 7.241 (7.360-7.450)
[2018-06-30 05:28] LABS: PCO2 94.1 mmHg (35.0-45.0)
[2018-06-30 05:29] LABS: HEMATOCRIT 31.2 % (37.0-47.0); HEMOGLOBIN 10.1 gm/dL (12.0-15.0); MCH 29.9 pg (26.0-34.0); MCHC 32.3 g/dL (28.0-37.0); MCV 92.8 fL (80.0-100.0); RBC 3.37 mil/uL (4.20-5.00); RDW 16.4 % (10.5-14.5); WBC 12.2 thou/uL (4.0-11.0)
[2018-06-30 05:32] LABS: CALCIUM 9.3 mg/dL (8.5-10.1); CREATININE 0.9 mg/dL (0.6-1.0); POTASSIUM 4.4 mmol/L (3.5-5.1)
--- NOTE | 2018-06-30 08:07 | NUR ---
ASSUMED CARE OF PT AT 1900. PT OFF SEDATION. DROWSY. ABLE TO TRACK WITH EYES BUT DOES NOT FOLLOW COMMANDS AT THIS TIME. PT A FIB ON THE MONITOR. ABLE TO TITRATE CARDIZEM GTT AND OBTAIN BETTER RATE CONTROL FROM IV METOPROLOL. PT TOLERATE WELL. PT EDEMATOUS. WEEPING FROM BILATERAL UPPER EXTREMETIES. AM ABG CALLED TO DR ANDRADE. VENT SETTINGS CHANGED PER DR Mariano ORDERS. MARGINAL UO. PT MAKING NO SIGNIFICANT PROGRESS TOWARDS GOALS.
[2018-06-30 08:39] LABS: BE(vivo) 10.9 mmol/L (-2 to +3); HCO3 39.8 mmol/L (22.0-26.0); PO2 57.7 mmHg (80.0-100.0); sO2 86.1 % (92.0-98.0)
[2018-06-30 08:40] LABS: pH 7.315 (7.360-7.450)
--- NOTE | 2018-06-30 19:59 | NUR ---
1300 LEVOPHED OFF, BLOOD PRESSURE 142/78, CARDIZEM 5MG/HR HR 105-135, PT NOT TRACKING OR OPENING EYES TO VOICE, NOT MOVING EXTREMETIES, RESTRAINTS DISCONTINUED AT 1515, DOCUMENTATION COMPLETED, DISCUSSION WITH AT BEDSIDE ON PLAN OF CARE, PT WISHES ARE TO NOT BE PLACED IN A HALFWAY FACILITY, DOES NOT WANT HER TRACHED AND PEG, HE STATED "SHE MADE ME PROMISE I WOULD NOT DO THAT TO HER." WILL CONTINUE TO MONITOR FOR IMPROVEMENT.
--- NOTE | 2018-06-30 22:31 | NUR ---
GCS 8. OPENS EYES TO VOICE. NONVERBAL. DOES NOT MOVE UPPER OR LOWER EXTREMITIES, BUT FLINCHES/ATTEMPTS TO WITHDRAW FROM PAINFUL STIMULI. DOES NOT FOLLOW COMMANDS. DOES NOT TRACK WITH EYES. AFIB ON MONITOR. DILTIAZEM GTT. O2 SAT > 92%. TACHYPNEIC. VENT SETTINGS FOLLOWS: AC RATE 20, TV 450, PEEP 8, FI02 35%. SMALL VOLUME YELLOW, BLOOD TINGED SPUTUM. SUCTION PRN. TOLERATING TUBE FEEDING AT GOAL. ADEQUATE URINE OUTPUT. VITAL SIGNS AND ASSESSMENTS DOCUMENTED. WILL CONTINUE TO MONITOR.
[2018-07-01] VITALS (24 sets, daily range): BP systolic 109–165; BP diastolic 54–101
[2018-07-01 04:49] LABS: HEMATOCRIT 33.1 % (37.0-47.0); HEMOGLOBIN 10.7 gm/dL (12.0-15.0); MCH 30.1 pg (26.0-34.0); MCHC 32.4 g/dL (28.0-37.0); MCV 92.6 fL (80.0-100.0); RBC 3.57 mil/uL (4.20-5.00); RDW 16.5 % (10.5-14.5); WBC 16.7 thou/uL (4.0-11.0)
[2018-07-01 04:55] LABS: ALBUMIN 2.6 g/dL (3.4-5.0); CALCIUM 9.4 mg/dL (8.5-10.1); CREATININE 0.6 mg/dL (0.6-1.0); MAGNESIUM 2.1 mg/dL (1.8-2.4); TOTAL BILIRUBIN 0.3 mg/dL (<0.1-1.0); TOTAL PROTEIN 5.9 g/dL (6.4-8.2)
--- NOTE | 2018-07-01 16:57 | NUR ---
PT APPEARS TO BE HAVING GUPPY LIKE BREATHING, DR ANDRADE PAGED TO REVIEW ASSESSMENT. ORDERS TO SEDATE PT USING PROPOFOL AND PRN PAIN MEDS IF NEEDED. DISCUSSION WITH MARLA AT BEDSIDE REGARDING BREATHING PATTERN AND SEDATION PLAN. HE AGREES. REQUEST TO SPEAK TO DR ADAMSON REGARDING PLAN OF CARE. SNOW SPOKE WITH ON THE PHONE ABOUT CODE STATUS/PT WISHES/SEDATION. WISHES TO MAKE PT DNR, KEEP COMFORTABLE WITH SEDATION MEDICATION.
--- NOTE | 2018-07-01 22:49 | NUR ---
GCS 7-8. SEDATION WITH PROPOFOL. DURING SEDATION VACATION, PT OPENS EYES TO VOICE & FLINCHES IN RESPONSE TO PAINFUL STIMULI. DOES NOT MOVE UPPER OR LOWER EXTREMITIES. DOES NOT FOLLOW COMMANDS. DOES NOT TRACK WITH EYES. AFIB ON MONITOR. DILTIAZEM GTT. O2 SAT > 88%. TACHYPNEIC. SMALL VOLUME COCHRAN, BLOOD-TINGED SPUTUM. SUCTION PRN. TOLERATING TUBE FEEDING AT GOAL. ADEQUATE URINE OUTPUT. VITAL SIGNS AND ASSESSMENTS DOCUMENTED. WILL CONTINUE TO MONITOR.
[2018-07-02] VITALS (23 sets, daily range): BP systolic 92–150; BP diastolic 53–73
[2018-07-02 04:20] LABS: CALCIUM 9.6 mg/dL (8.5-10.1); CREATININE 0.6 mg/dL (0.6-1.0); POTASSIUM 5.4 mmol/L (3.5-5.1)
--- NOTE | 2018-07-02 08:53 | HC ---
[facility] [place] [address] CONSULTATION Name: JL RICE Room #: 246-P [facility] IN M.R.#: [id number] Admission: 06/25/18 ������������������ Attend Phys: Ayaz Hernandez Discharge: ������������������ Date of : 48 Report #: [id number] THIS REPORT FOR: //name// CC: Ayaz Pettit REASON FOR CONSULTATION: Tachycardia. HISTORY OF PRESENT ILLNESS: The patient is a 67-year old with very severe, end-stage oxygen-dependent COPD. She was admitted with hypoxemic respiratory failure requiring intubation. In the setting of severe respiratory distress, she developed transient atrial fibrillation that converted spontaneously to sinus rhythm. She has been running heart rates of 110-120, sinus tachycardia. Her history comes from interview with the patient and her as well as review provided hospitalization records. Apparently at home, she has had severe exertional hypoxemia. She is wheelchair bound and when she takes 2 or 3 steps, her oxygen levels will plummet into the 70s. With this, her heart rate will go up into the 120 range. Once her oxygen saturations improved, her heart rates come back down to about 100. She has had no fevers or chills. Her ET tube has had purulent secretions suctioned. No history of fevers or chills. ALLERGIES: Numerous and listed and reviewed in the medical record. MEDICATIONS: Include Singulair 10 mg daily, levothyroxine 100 mcg daily, Symbicort, Xopenex, aspirin 81 mg daily, digoxin 0.125 mg daily, diltiazem CD 120 mg daily, Lasix 20 mg daily, metoprolol succinate 25 mg daily, potassium 20 mEq daily, Protonix, Ditropan 10 mg daily, atorvastatin 20 mg daily, albuterol and Ativan. PAST MEDICAL HISTORY: Notable for severe oxygen-dependent lung disease, diverticulitis with colon resection in 1993, viral pneumonia in 2013, sinus surgery, osteoporosis and cholecystectomy. SOCIAL HISTORY: She is a former smoker, quit in 2006. FAMILY HISTORY: Unremarkable for premature coronary artery disease. REVIEW OF SYSTEMS: All systems negative except as that noted above. PHYSICAL EXAMINATION: GENERAL: A comatose woman who is intubated, ventilated and sedated. VITAL SIGNS: Blood pressure is 140/80, heart rate of 130 and regular and temperature is 98 degrees. HEENT: There are neither xanthelasma, subcutaneous xanthomata, oral mucosal or digital cyanosis or kyphoscoliosis present. [address] [address] CONSULTATION Name: JL RICE Room #: 246-P [facility] IN M.R.#: [id number] Admission: 06/25/18 ������������������ Attend Phys: Ayaz Hernandez Discharge: ������������������ Date of : 48 Report #: [id number] CHEST: Reveals basilar rales, distant but equal breath sounds. Prolonged expiratory phase. CARDIAC: Regular rate and rhythm with normal S1 and S2. ABDOMEN: Soft and nontender. EXTREMITIES: Without cyanosis, clubbing or edema. Radial pulses are 2+. NEUROLOGICAL: She is sedated with a nonfocal exam. LABORATORY DATA: Sodium 140, potassium 4.0 and creatinine 1.0. Troponin 0. Pro-BNP of 1363. White count 12.5, hemoglobin 11, hematocrit 33 and platelet count 167. RADIOLOGICAL DATA: Chest x-ray demonstrates chronic lung changes. EKG pending. IMPRESSION: 1. Severe end-stage oxygen-dependent chronic obstructive pulmonary disease. 2. Transient paroxysmal atrial fibrillation, now sinus tachycardia. 3. Sinus tachycardia, physiologic response to severe underlying lung disease. 4. Dyslipidemia. 5. Hypothyroidism, on replacement. RECOMMENDATIONS: 1. Echocardiogram with Doppler. 2. I would avoid antiarrhythmic therapy if at all possible, resume Cardizem and low dose metoprolol succinate. 3. Thyroid function studies. 4. I believe that her atrial dysrhythmias are a reflection of her very severe underlying lung disease. Echocardiography has been ordered to exclude structural heart disease. ��������������������������������������������� <ELECTRONICALLY SIGNED> ���������������������������������������� By: Bryant Lynn MD, FACC ��������������������������������������������� 07/02/18 0853 0930 2331 Bryant Lynn MD, FACC /nt
--- NOTE | 2018-07-02 09:39 | NUR ---
Pt now on propofol at 17 mL/hr. Recommend Vital HP at goal rate of 40 mL/hr. Defer fluid REC.
--- NOTE | 2018-07-02 17:34 | NUR ---
Assumed care of patient at 0700. Patient continues with propofol for agitation/restlessness on the ventilator. When lightened, some spontaneous eye opening noted, but no following commands or tracking. No code status noted. Dr. Hernandez and Dr. Dunaway able to spend some time discussing plan of care with Jefferson at bedside. Jefferson is wanting to wait until Monday to withdraw care because that is their monding anniversary. Children are also planning to be present on Monday. For now continuing with meds per tube, tube feeds, and abx. Continue to monitor and offer emotional support.
[2018-07-03] VITALS (23 sets, daily range): BP systolic 93–157; BP diastolic 44–83
--- NOTE | 2018-07-03 06:25 | NUR ---
ASSUMED CARE @ 1900 07/02/18, PT ASSESSMENTS AND VSS COMPLETE PER ICU PROTOCOL. PT ON PROPOFOL GTT FOR SEDATION, PT NOT FOLLOWING COMMANDS, GAG AND COUGH REFLEX PRESENT. PT ON VENT, SEE PROCESS INTERVENTIONS FOR SPECIFICS, SATS IN THE MID 90'S. PT AFIB ON THE MONITOR, CARDIZEM AND LOPRESSOR SCHEDULED IN PLACE, EDEMA PRESENT, SEE PROCESS INTERVENTION FOR SPECIFICS. OG IN PLACE TO TF VIT HP RUNNING @ GOAL, H20 FLUSHES IN PLACE. ARROYO IN PLACE GOP NOTED. FALL PRECAUTIONS IN PLACE, BATH GIVEN DURING SHIFT, NO COMPLICATIONS NOTED. PLAN OF CARE- CONT TO MONITOR.
--- NOTE | 2018-07-03 17:06 | PATH ---
[facility] [address] [place] [address] PATHOLOGY RPT PROCEDURE Name: JL RICE Room #: 246-P ADM IN M.R.#: [id number] ������������������ Admission: 06/25/18 ������������������ Date of : 48 Discharge: Report #: [id number] Path Case #: [id number] Note [facility] Accession Number: [id number] TESTS RESULT FLAG UNITS REF RANGE LAB Clinician Provided Cytology Information No. of containers..01 Other (Miscellaneous) Source: BAL DIAGNOSIS: BAL NEGATIVE FOR MALIGNANT CELLS. REACTIVE BRONCHIAL CELLS ARE PRESENT. PULMONARY MACROPHAGES (DUST CELLS) ARE PRESENT. REACTIVE SQUAMOUS CELLS ARE PRESENT. MARKED ACUTE INFLAMMATION. Pathologist ICD10: 02 J44.1 Signed out by: Isabelle Moon MD, Pathologist NPI- [id number] Performed by: Miguel Ángel Romero, Group Captain ([facility]) Gross description: 01 10ML, REDDISH BROWN, CLOUDY /LCS FLAG LEGEND: L-Low Normal,H-High Normal,LL-Alert Low,HH-Alert High <-Panic Low,>-Panic High,A-Abnormal,AA-Critical Abnormal Performed at: [address] [facility] [address] [place] [address] Nguyễn Valdivia MD, [address] [address] Isabelle Moon MD, Specimen Comment: A courtesy copy of this report has been sent to Specimen Comment: [phone], , . Specimen Comment: Report sent to ,DR ADAMSON / DR RUIZ Specimen Comment: A duplicate report has been generated due to demographic updates. Performed at: [address], [place], [place] [id number] [address] [address] PATHOLOGY RPT PROCEDURE Name: JL RICE Room #: 246-P ADM IN M.R.#: [id number] ������������������ Admission: 06/25/18 ������������������ Date of : 48 Discharge: Report #: [id number] Path Case #: [id number] MD Nguyễn Valdivia [place] Phone: [phone]
--- NOTE | 2018-07-03 17:28 | NUR ---
PT REMAINS ON VENT WITH SETTINGS UNCHANGED. TUBE FEEDING INFUSING WITH NO RESIDUAL. REMAINS ON PROPOFOL. WILL OPEN EYES BUT DOES NO APPEAR TO TRACK. WILL WITHDRAW FROM NOXIOUS STIMULI IN ALL EXTREMITIES BUT DOES NOT FOLLOW ANY COMMANDS. PT'S AND DAUGHTER AT BEDSIDE. PT PLANS FOR WITHDRAW OF CARE TOMORROW WHEN ALL DAUGHTERS CAN BE IN TOWN. PT'S TEARFUL TODAY. TURNED Q2H. FREQUENT ORAL CARE DONE. WILL CONTINUE TO MONITOR PATIENT.
[2018-07-04] VITALS (9 sets, daily range): BP systolic 128–164; BP diastolic 61–80
--- NOTE | 2018-07-04 07:32 | NUR ---
ASSUMED CARE @ 1900 07/03/18, PT ASSESSMENTS AND VSS COMPLETE PER ICU PROTOCOL. PT NOT FOLLOWING COMMANDS AT THIS TIME, COUGH AND GAG REFLEX PRESENT. PT ON THE VENT SEE, PROCESS INTERVENTIONS FOR SPECIFICS. PT AFIB/A-FLUTTER ON THE MONITOR, EDEMA PRESENT SEE PROCESS INTERVENTIONS FOR SPECIFICS. OG IN PLACE TO TF @ 50 (GOAL), LOW RESIDUALS NOTED, ARROYO IN PLACE, MARGINAL OUTPUT NOTED. BATH GIVEN DURING SHIFT, PT HAD AN UNEVENTFUL NIGHT, PLAN OF CARE- CONT TO MONITOR.
--- NOTE | 2018-07-04 08:27 | NUR ---
PT MADE DNR A COUPLE DAYS AGO AND HOSPITLAIST AND PULMONOLOGY HAVE COMMUNICATED DAILY WITH SPOUSE AND PLAN MOVING TOWARD COMFORT CARE. SPOUSE INDICATES HE WILL LET CARE TEAM KNOW SOON ABOUT TIMING.
--- NOTE | 2018-07-04 13:43 | NUR ---
EXTUBATED PER RT. FAMILY AT BEDSIDE FOR ONGOING SUPPORT AT THIS TIME. NURSING STAFF AT BEDSIDE FOR SUPPORT. MORPHINE DRIP INFUSING FOR COMFORT. AND PT COMFORTABLE AND RESTING AT THIS TIME
== END 2018-07-04 15:15 | DRG 207 ==
LOC: ER 22:46 → ICU 06-25 01:06 → EROBS 06-25 01:06 → 4W 06-25 01:59 → 3W 06-25 04:31 → ICU 06-25 06:00
PROVIDERS: Emergency Medicine; Hospitalist; Internal Medicine Pulmonary Disease; Nurse Practitioner Acute Care; Nurse Practitioner Family; Pediatrics; ADMIT Hospitalist
PROC: 5A09357 Assistance with Respiratory Ventilation, Less than 24 Consecutive Hours, Continuous Positive Airway Pressure (ICD-10-PCS; 2018-06-25)
PROC: 03HY32Z Insertion of Monitoring Device into Upper Artery, Percutaneous Approach (ICD-10-PCS; principal; 2018-06-26)
PROC: 5A1955Z Respiratory Ventilation, Greater than 96 Consecutive Hours (ICD-10-PCS; principal; 2018-06-26)
PROC: 5A09357 Assistance with Respiratory Ventilation, Less than 24 Consecutive Hours, Continuous Positive Airway Pressure (ICD-10-PCS; principal; 2018-06-26)
PROC: 02HV33Z Insertion of Infusion Device into Superior Vena Cava, Percutaneous Approach (ICD-10-PCS; principal; 2018-06-26)
PROC: 0BH17EZ Insertion of Endotracheal Airway into Trachea, Via Natural or Artificial Opening (ICD-10-PCS; principal; 2018-06-26)
PROC: B548ZZA Ultrasonography of Superior Vena Cava, Guidance (ICD-10-PCS; principal; 2018-06-26)
PROC: 0B9F8ZX Drainage of Right Lower Lung Lobe, Via Natural or Artificial Opening Endoscopic, Diagnostic (ICD-10-PCS; 2018-06-28)
PROC: 0B9D8ZX Drainage of Right Middle Lung Lobe, Via Natural or Artificial Opening Endoscopic, Diagnostic (ICD-10-PCS; 2018-06-28)
DX: J96.22 Acute and chronic respiratory failure with hypercapnia (principal); J15.4 Pneumonia due to other streptococci; J44.1 Chronic obstructive pulmonary disease with (acute) exacerbation; I50.30 Unspecified diastolic (congestive) heart failure; J44.0 Chronic obstructive pulmonary disease with (acute) lower respiratory infection; J45.909 Unspecified asthma, uncomplicated; M19.012 Primary osteoarthritis, left shoulder; M19.011 Primary osteoarthritis, right shoulder; M81.0 Age-related osteoporosis without current pathological fracture; K21.9 Gastro-esophageal reflux disease without esophagitis; E03.9 Hypothyroidism, unspecified; E78.5 Hyperlipidemia, unspecified; R00.0 Tachycardia, unspecified; I48.0 Paroxysmal atrial fibrillation; I11.0 Hypertensive heart disease with heart failure; F32.9 Major depressive disorder, single episode, unspecified; I16.0 Hypertensive urgency; J96.21 Acute and chronic respiratory failure with hypoxia; I95.9 Hypotension, unspecified; Z66 Do not resuscitate; Z51.5 Encounter for palliative care; F41.9 Anxiety disorder, unspecified; Z88.2 Allergy status to sulfonamides; Z90.49 Acquired absence of other specified parts of digestive tract; Z90.710 Acquired absence of both cervix and uterus; Z88.8 Allergy status to other drugs, medicaments and biological substances; Z88.6 Allergy status to analgesic agent; Z88.1 Allergy status to other antibiotic agents; Z91.041 Radiographic dye allergy status; Z88.0 Allergy status to penicillin; Z91.013 Allergy to seafood; Z87.891 Personal history of nicotine dependence; Z99.81 Dependence on supplemental oxygen
CPT/HCPCS: 10078; 85014; 85026